=== PATIENT | female | born 1975 | race Caucasian/White ===

== ENCOUNTER 2022-11-01 08:18 | Outpatient (OUT) | payer OTHER, SELFPAY ==
[2022-11-01 08:45] LABS: Basophils Percent Auto 0.6 % (0.2-2.0); Eosinophils Absolute Auto 0.2 10^3/uL (0.0-0.7); Eosinophils Percent Auto 3.3 % (0.9-7.0); Hematocrit 38.9 % (36.0-48.0); Hemoglobin 12.9 g/dL (12.0-16.0); Immature Granulocytes Abs Auto 0.02 10^3/uL (0.00-0.03); Immature Granulocytes Pct Auto 0.3 % (0.0-0.5); Lymphocytes Absolute Auto 2.3 10^3/uL (1.2-3.8); Mean Corpuscular HGB Conc 33.2 g/dL (29.9-35.2); Mean Corpuscular Hemoglobin 29.8 pg (26.7-34.0); Mean Corpuscular Volume 89.8 fL (81.0-99.0); Mean Platelet Volume 8.8 fL (9.5-13.5); Monocytes Absolute Auto 0.5 10^3/uL (0.3-0.8); Monocytes Percent Auto 6.4 % (1.7-12.0); Neutrophils Percent Auto 56.4 % (43.0-75.0); Platelet Count 290 10^3/uL (150-450); Red Blood Count 4.33 10^6/uL (4.20-5.40); Red Cell Distribution Width 12.6 % (11.0-15.0); White Blood Count 7.1 10^3/uL (4.0-11.0)
[2022-11-01 09:07] LABS: Estimated Average Glucose 100 mg/dL; Glycohemoglobin A1C 5.1 % (4.5-6.2)
[2022-11-01 09:55] LABS: Alanine Aminotransferase 44 U/L (14-59); Albumin Level 3.5 g/dL (3.4-5.0); Alkaline Phosphatase 89 U/L (46-116); Anion Gap 11.2; Aspartate Amino Transferase 28 U/L (15-37); BUN Creatinine Ratio 9.7; Bilirubin Total 0.4 mg/dL (0.2-1.0); Calcium 8.5 mg/dL (8.5-10.1); Carbon Dioxide 28.7 mmol/L (21.0-32.0); Chloride 104 mmol/L (98-107); Chol HDL Ratio 3.9; Cholesterol 170 mg/dL (<=200); Estimated GFR (African America >60 (>=60); Estimated GFR (Non-African Ame >60 (>=60); Globulin 3.4 g/dL; Glucose 119 mg/dL (74-106); HDL Cholesterol 44 mg/dL (40-60); LDL Cholesterol Calculated 103.6 mg/dL; Potassium 3.9 mmol/L (3.5-5.1); Sodium 140 mmol/L (136-145); Thyroid Stimulating Hormone 1.523 uIU/mL (0.358-3.740); Total Protein 6.9 g/dL (6.4-8.2); Triglycerides 112 mg/dL (<=150); VLDL CHOLESTEROL 22.4 mg/dL
[2022-11-02 10:13] LABS: Insulin 18.7 uIU/mL (2.6-24.9)
== END 2022-11-01 08:19 ==
LOC: LAB 08:23
PROVIDERS: PCP Family Medicine; Visit Provider Family Medicine
DX: Z00.00 Encounter for general adult medical examination without abnormal findings (principal)
CPT/HCPCS: 36415; 80053; 80061; 83036; 83525; 84436; 84439; 84443; 85025

== ENCOUNTER 2023-05-20 09:23 | Outpatient (OUT) | payer OTHER, SELFPAY ==
--- NOTE | 2023-05-20 09:27 | MM_ITS ---
Patient Name: JAMAICA RUSSO MR#: [id number] : 1975 Exam Date: 05/20/2023 Ordering Doctor: DR Chris Ramirez . RADIOLOGY REPORT PROCEDURE: MM TOMOSYNTHESIS SCREENING BI COMPARISON: MG MAMM SCREEN 3D MARGARET CAD, 05/14/2022. MG MAMM SCREEN 3D MARGARET CAD, 03/26/2021. INDICATIONS: screening Calculator Name NCI Breast Cancer Risk Assessment Tool 5 Year Breast Cancer Risk 1.70% Lifetime Breast Cancer Risk 18.20% Personal Breast Cancer No Personal Ovarian Cancer No Treatments None Family Cancers Sister with breast cancer at age 43; Father with esophageal cancer at age 58; Grandfather-maternal with larynx/throat cancer at age ~60; Cousin-maternal with ovarian cancer at age 19. LOCATION: [facility] BREAST COMPOSITION: Scattered areas fibroglandular density. FINDINGS: DIAGNOSTIC CATEGORY 1--NEGATIVE. NO CHANGE FROM COMPARISON ASSESSMENT. RIGHT BREAST: No significant suspicious finding. LEFT BREAST: No significant suspicious finding. RECOMMENDATIONS: ROUTINE MAMMOGRAM AND CLINICAL EVALUATION IN 12 MONTHS. PLEASE NOTE: A NORMAL MAMMOGRAM DOES NOT EXCLUDE THE POSSIBILITY OF BREAST CANCER. A CLINICALLY SUSPICIOUS PALPABLE LUMP SHOULD BE BIOPSIED. Dictated by: Jonnie Fontaine MD on 05/20/2023 at 13:20 Approved by: Jonnie Fontaine MD on 05/20/2023 at 13:21
== END 2023-05-20 09:24 | disposition home or self-care (01) ==
LOC: MAMMO 09:23
PROVIDERS: PCP Family Medicine; Visit Provider Family Medicine
DX: Z12.31 Encounter for screening mammogram for malignant neoplasm of breast (principal); Z80.3 Family history of malignant neoplasm of breast; Z80.8 Family history of malignant neoplasm of other organs or systems; Z80.41 Family history of malignant neoplasm of ovary
CPT/HCPCS: 77063; 77067

== ENCOUNTER 2023-11-03 08:16 | Outpatient (OUT) | payer OTHER, SELFPAY ==
--- OUTSIDE RECORDS SUMMARY | 2023-11-03 08:19 | XMS_ITS ---
Patient Summarization (C-CDA 2.1 CCD) Created on: November 03, 2023 JAMAICA RUSSO : 1975 Sex: Female Author Organization Sample organization Care Team Providers Care Supervisor Rides Name Role Phone MEGGAN, DR MURPHY Admitting Unavailable NILL, DR MURPHY Attending Unavailable HOY, DR WEINBERG Primary Care Unavailable NILL, DR MURPHY Consulting Unavailable NILL, DR MURPHY Admitting Unavailable NILL, DR MURPHY Attending Unavailable HOY, DR WEINBERG Primary Care Unavailable NILL, DR MURPHY Consulting Unavailable SMITH, COLLEEN Consulting Unavailable PATRICIA, GUME Admitting Unavailable PATRICIA, GUME Attending Unavailable HOY, DR WEINBERG Primary Care Unavailable ZIEBER, DR ARMOND Ford Consulting Unavailable PATRICIA, GUME Consulting Unavailable HOY, DR WEINBERG Admitting Unavailable HOY, DR WEINBERG Attending Unavailable HOY, DR WEINBERG Primary Care Unavailable HOY, DR WEINBERG Consulting Unavailable ZIEBER, DR ARMOND Ford Consulting Unavailable MISC, DR UNDERWOOD Admitting Unavailable MISC, DR UNDERWOOD Attending Unavailable HOY, DR WEINBERG Primary Care Unavailable WEST, DR NUNU Baldwin Consulting Unavailable MISC, DR UNDERWOOD Consulting Unavailable HOY, DR WEINBERG Admitting Unavailable HOY, DR WEINBERG Attending Unavailable HOY, DR WEINBERG Primary Care Unavailable HOY, DR WEINBERG Consulting Unavailable HOY, DR WEINBERG Primary Care Unavailable PATRICIA, GUME Admitting Unavailable PATRICIA, GUME Attending Unavailable PATRICIA, GUME Consulting Unavailable Mee Carroll Unavailable Encounters Encounter Date Encounter Type Care Provider Facility Start: 09-17-2022 End: 09-17-2022 ambulatory Mee Carroll Other [facility] Other Start: 09-17-2022 Office outpatient vi sit 25 minutes eMe Carroll [facility] Start: 05-14-2022 End: 05-15-[address] DOCTOR SUTTON Facility: Start: 06-10-2021 Encounter for preprocedural laboratory examination DR KATHERINE AGUILERA [facility] Start: 06-10-2021 End: 06-10-[address] KATHERINE AGUILERA Facility:[facility] Start: 06-06-2021 End: 06-07-[address] KATHERINE AGUILERA Facility:[facility] Start: 06-06-2021 End: 06-07-2021 Encounter for preprocedural laboratory examination DR KATHERINE AGUILERA Facility:[facility] Start: 05-28-2021 End: 05-28-[address] SULTANA RAMIREZ Facility:[facility] Start: 05-26-2021 End: 05-27-2021 ambulatory GUME GOMEZ Facility:[facility] Start: 05-22-2021 End: 05-22-[address] SULTANA RAMIREZ Facility:[facility] Start: 05-21-2021 End: 05-22-[address] SULTANA RAMIREZ Facility:[facility] Medications Current Medications Medication Drug Class(es) Dates Sig (Normalized) Sig (Original) amoxicillin 500 mg oral capsule (1 source) Penicillin-class Antibacterial Start: 09-17-2022 take 1 capsule by mouth every twelve hours Amoxicillin 500 MG 1 capsule Orally Twice a day for 10 days September, Active cetirizine hydrochloride 10 mg oral tablet (1 source) Histamine-1 Receptor Antagonist take 1 tablet by mouth once daily ZyrTEC 10 MG 1 tablet Orally Once a day Active escitalopram 5 mg oral tablet (1 source) Serotonin Reuptake Inhibitor take 1 tablet by mouth every twenty-four hours Lexapro 5 MG 1 tablet Orally Once a day Active fluticasone propionate 0.05 mg/actuat metered dose nasal spray (1 source) Corticosteroid Start: 08-21-2020 take 1 spray(s) nasal route once daily Fluticasone Propionate 50 MCG/ACT 1 spray in each nostril Nasally Once a day for 30 day(s) Aug, Active norethindrone 0.35 mg oral tablet (1 source) Jencycla 0.35 MG Oral for 84 Days Active pantoprazole 40 mg delayed release oral tablet (1 source) Proton Pump Inhibitor Start: 11-19-2019 take 1 tablet by mouth every twenty-four hours Pantoprazole Sodium 40 MG 1 tablet Orally Once a day for 90 days Nov, Active predniSONE 20 mg oral tablet (1 source) Start: 09-17-2022 take 1 tablet by mouth every twelve hours prednisone 20 MG 1 tablet Orally BID for 5 days September, Active Completed/Discontinued Medications Medication Drug Class(es) Dates Sig (Normalized) Sig (Original) docusate sodium 50 mg / sennosides, half-way 8.6 mg oral tablet (1 source) Start: 01-27-2021 take 8.6-50 mg by mouth at bedtime Senokot S 8.6-50 MG 2 tabs Orally at bedtime for 30 day(s) Jan, Not-Taking lubiprostone 0.024 mg oral capsule (2 sources) Chloride Channel Activator Start: 12-09-2020 take 1 capsule by mouth twice daily at mealtime Amitiza 24 MCG 1 capsule with food and water Orally Twice a day for 90 day(s) Jan, Not-Taking Trulance 3 MG (1 source) Start: 09-29-2020 take 1 tablet by mouth once daily Trulance 3 MG 1 tablet Orally Once a day for 90 day(s) September, Not-Taking Payers Date Payer Category Payer Unknown [id number] [id number] 1975 Unknown [id number] 2.16.84 [id number] 1975 Unknown [id number] 2.16.84 [id number] 1975 Unknown [id number] 2.16.84 [id number] 1975 Unknown [id number] 2.16.84 [id number] 1975 Unknown [id number] 2.16.84 [id number] 1975 Unknown [id number] 2.16.84 [id number] 1957 Private Health Insurance [id number] 1957 Private Health Insurance [id number] Problems Active Problems Problem Classification Problem Date Documented Da te Episodic/Chronic Abdominal pain (16 sources) Right lower quadrant pain; Translations: [Epigastric pain] Onset: 05-26-2021 Episodic Administrative/social admission (1 source) Counseling procedure with explicit context; Translations: [Other specified counseling] Episodic Esophageal disorders (2 sources) Gastro-esophageal reflux disease without esophagitis; Translations: [Gastroesophageal reflux disease] Onset: 06-17-2021 Chronic Gastritis and duodenitis (1 source) Unspecified chronic gastritis without bleeding; Translations: [UNS CHRONIC GASTRITIS W/O BLEEDING] Onset: 06-17-2021 Chronic Immunizations and screening for infectious disease (1 source) Contact with and (suspected) exposure to other bacterial communicable diseases Episodic Other gastrointestinal disorders (1 source) Irritable bowel syndrome; Translations: [Irritable bowel syndrome without diarrhea] Chronic Other gastrointestinal disorders (1 source) Constipation; Translations: [Constipation, unspecified] Episodic Other nutritional; endocrine; and metabolic disorders (1 source) Body mass index 30+ - obesity; Translations: [Body mass index (BMI) 32.0-32.9, adult] Chronic Otitis media and related conditions (1 source) Other acute nonsuppurative otitis media, right ear Episodic Spondylosis; intervertebral disc disorders; other back problems (1 source) Other intervertebral disc degeneration, lumbosacral region; Translations: [OTH IV DISC DEGEN LUMBOSACRAL RGN] Onset: 05-26-2021 Chronic Unclassified (1 source) CONTACT W/AND (SUSP) EXPOS COVID-19; Translations: [CONTACT W/AND (SUSP) EXPOS COVID-19] Onset: 06-10-2021 Past or Other Problems Problem Classification Problem Date Documented Da te Episodic/Chronic Abdominal hernia (1 source) Umbilical hernia without obstruction or gangrene; Translations: [UMBILICAL HERNIA W/O OBST/GANGRENE] Onset: 05-26-2021 Episodic Biliary tract disease (4 sources) Calculus of gallbladder without cholecystitis without obstruction; Translations: [CALCU GB W/O CHOLECYST W/O OBST] Onset: 05-21-2021 Episodic Calculus of urinary tract (1 source) Calculus of ureter; Translations: [CALCULUS OF URETER] Onset: 05-28-2021 Episodic Noninfectious gastroenteritis (1 source) Noninfective gastroenteritis and colitis, unspecified; Translations: [NONINFECTIVE GE AND COLITIS UNS] Onset: 05-26-2021 Episodic Other gastrointestinal disorders (1 source) Change in bowel habit; Translations: [CHANGE IN BOWEL HABIT] Onset: 06-17-2021 Episodic Other gastrointestinal disorders (1 source) Diarrhea, unspecified; Translations: [DIARRHEA UNSPECIFIED] Onset: 06-01-2021 Episodic Other screening for suspected conditions (not mental disorders or infectious disease) (1 source) Abnormal findings on diagnostic imaging of other abdominal regions, including retroperitoneum; Translations: [ABN FIND DX IMAG OTH AB REGION W/RP] Onset: 06-17-2021 Episodic Screening and history of mental health and substance abuse codes (1 source) Personal history of nicotine dependence; Translations: [PERSONAL HISTORY OF NICOTINE DEPEND] Onset: 06-17-2021 Episodic Results Test Name Value Interpretation Reference Range Facility MG MAMM SCREEN 3D MARGARET CADon 05-14-2022 MG MAMM SCREEN 3D MARGARET CAD Patient: JAMAICA RUSSO Exam Date: 05/14/2022 : 1975 Gender:F Ordering : DIOGENES MARTELL Admission #: [id number] Family : Order #: [id number] CLICK HERE TO VIEW EXAM RADIOLOGY REPORT PROCEDURE: MAMMOGRAM SCREENING 3D BILATERAL CAD COMPARISON: MG MAMM SCREEN MARGARET W CAD, 03/25/2020. MG MAMM SCREEN 3D MARGARET CAD, 03/26/2021. INDICATIONS: Calculator Name NCI Breast Cancer Risk Assessment Tool 5 Year Breast Cancer Risk 1.70% Lifetime Breast Cancer Risk 18.50% Personal Breast Cancer No Personal Ovarian Cancer No Treatments None Family Cancers Sister with breast cancer at age 43; Father with esophageal cancer at age 58; Grandfather-maternal with larynx/throat cancer at age 60; Cousin-maternal with ovarian cancer at age 19. LOCATION: [facility] BREAST COMPOSITION: Scattered areas fibroglandular density. FINDINGS: DIAGNOSTIC CATEGORY 1--NEGATIVE. NO CHANGE FROM COMPARISON ASSESSMENT. Scattered benign-appearing calcifications are present. Scattered benign-appearing lymph nodes are present. RIGHT BREAST: No significant suspicious finding. LEFT BREAST: No significant suspicious finding. RECOMMENDATIONS: ROUTINE MAMMOGRAM AND CLINICAL EVALUATION IN 12 MONTHS. PLEASE NOTE: A NORMAL MAMMOGRAM DOES NOT EXCLUDE THE POSSIBILITY OF BREAST CANCER. A CLINICALLY SUSPICIOUS PALPABLE LUMP SHOULD BE BIOPSIED. Dictated by: Nunu Fontaine MD on 05/14/2022 at 11:21 Approved by: Nunu Fontaine MD on 05/14/2022 at 11:35 Normal [facility] Ambulatory Visit Summaryon 0 06-16-2021 Ambulatory Visit Summary JAMAICA RUSSO :1975 Visit Date:06/16/2021 Ambulatory Visit Instructions Your Care Team Attending Physician - MEGGAN CHOU, Katherine Ford Primary Care Physician - James CHOU, Sultana This Is Your Medications List acetaminophen-hydrocodone (acetaminophen-hydrocodone 325 mg-5 mg oral tablet) cefdinir (cefdinir 300 mg Cap) lubiprostone (lubiprostone 24 mcg Cap) metronidazole (MetroNIDAZOLE 500 mg Tab) ondansetron (ondansetron 4 mg Dis Tab) pantoprazole (Protonix 40 mg Tab-DR) Procedures Performed Colonoscopy (06/10/2021), EGD - Esophagogastroduodenoscopy (06/10/2021), Colonoscopy (06/17/2015), Impacted wisdom tooth. Discharge Vitals Temperature (Temporal Artery) 36.5 ?C Medications What How Much When Instructions Unchanged acetaminophen-hydrocodone (acetaminophen-hydrocodone 325 mg-5 mg oral tablet) Unchanged cefdinir (cefdinir 300 mg Cap) 2 Capsules By Mouth Every 12 hours Unchanged lubiprostone (lubiprostone 24 mcg Cap) 1 Capsules By Mouth 2 times a day Unchanged metronidazole (MetroNIDAZOLE 500 mg Tab) Unchanged ondansetron (ondansetron 4 mg Dis Tab) 1 Tablets By Mouth Every 8 hours Unchanged pantoprazole (Protonix 40 mg Tab-DR) 1 Tablets By Mouth Every day Allergies No Known Allergies No Known Medication Allergies Problems Ongoing - Any problem that you are currently receiving treatment for. Abdominal pain, chronic, right upper quadrant Abdominal pain, right lower quadrant Abdominal pain, right upper quadrant Abnormal abdominal CT scan Allergic rhinitis, seasonal BMI 30.0-30.9,adult Bowel habit changes Chronic GERD Epigastric pain History of ovarian cyst Hx of migraine headaches Insomnia Normal [facility] General Surgery Office/Clini c Noteon 06-16-2021 General Surgery Office/Clinic Note Chief Complaint post operative follow up HPI Staff 6 day post operative follow up post colonoscopy and EGD with antral biopsy. Reports she is taking Protonix more regularly which has alleviated some abdominal pain. History of Present Illness 1 week s/p EGD/colonoscopy due to abnormal ct scan and abdominal pain; mild gastritis on EGD, bx negative for H pylori; colonoscopy to terminal ileum wnl. Review of Systems ROS - Provider Constitutional: no fever, no sweats, no weight loss. Eyes: no glasses, no blurred vision, no visual loss. ENMT: no dentures, no hoarseness, no swallowing difficulties, no hearing loss, no ear infection(s), no nose bleeds. Cardiovascular: normal blood pressure, no chest pain, regular heartbeat, no heart murmur. Respiratory: no shortness of breath, no cough, no asthma, no wheezing. Gastrointestinal: no nausea, no vomiting, no diarrhea, no constipation, no blood in stool, no change in bowel habits, no abdominal pain, no hepatitis. Genitourinary: no kidney stones, no urine infection, no dysuria. Musculoskeletal: no pain, no weakness. Skin: no changing moles, no rash, no skin lumps. Neurologic: no seizures, no epilepsy, no headache. Psychiatric: no emotional or psychiatric problem. Heme/Lymph: no bleeding problems, no anemia, no blood clots, no transfusions. Allergy/Immunologic: no swollen lymph nodes/glands, no IV drug abuse. Other: Additional ROS info: Except as noted in the above Review of Systems and in the History of Present Illness, all other systems have been reviewed and are negative or noncontributory. Physical Exam Vitals & Measurements T: 36.5 ?C(Temporal Artery) Assessment/Plan 1. Chronic superficial gastritis without bleeding (K29.30: Chronic superficial gastritis without bleeding) doing well, pain improved with Protonix; call with problems/questions. 2. Abnormal abdominal CT scan (R93.5: Abnormal findings on diagnostic imaging of other abdominal regions, including retroperitoneum) no evidence of colitis on colonoscopy. Follow-up No qualifying data available Problem List/Past Medical History Ongoing Abdominal pain, chronic, right upper quadrant Abdominal pain, right lower quadrant Abdominal pain, right upper quadrant Abnormal abdominal CT scan Allergic rhinitis, seasonal BMI 30.0-30.9,adult Bowel habit changes Chronic GERD Epigastric pain Gastritis History of ovarian cyst Hx of migraine headaches Insomnia Historical No qualifying data Procedure/Surgical History Colonoscopy (06/10/2021), EGD - Esophagogastroduodenoscopy (06/10/2021), Colonoscopy (06/17/2015), Impacted wisdom tooth. Medications acetaminophen-hydrocodone 325 mg-5 mg oral tablet cefdinir 300 mg Cap, 600 mg= 2 cap(s), Oral, q12hr lubiprostone 24 mcg Cap, 24 mcg= 1 cap(s), Oral, BID MetroNIDAZOLE 500 mg Tab ondansetron 4 mg Dis Tab, 4 mg= 1 tab(s), Oral, q8hr Protonix 40 mg Tab-DR, 40 mg= 1 tab(s), Oral, Daily Allergies No Known Allergies No Known Medication Allergies Social History Alcohol - Denies Alcohol Use, 05/27/2021 Substance Abuse - Denies Substance Abuse, 05/27/2021 Tobacco Never (less than 100 in lifetime) Tobacco Use:. Never Smokeless Tobacco Use:., 05/27/2021 Family History Esophageal cancer: Father. Hyperlipidemia: Mother. Hypertension: Mother. Primary malignant neoplasm of female breast: Sister. Normal [facility] Comment on above: Result Comment: Elec tronically Signed By: MEGGAN CHOU, Katherine Clark\Date and Time Signed: 06/16/21 15:17 EST Outside Colonoscopyon 2021 Outside Colonoscopy [id number]:127 Normal [facility] Reminderson 06-16-2021 Reminders - From: Melina Park LPN To: N - Clinical; Sent: 06/16/2021 14:54:18 EST Show up: 05/10/2031 07:00:00 EST Subject: colonoscopy recall Due Date/Time: 06/10/2031 07:00:00 EST Reminder/Recall Patient is due for screening colonoscopy 06/10/2031. Normal [facility] Pathology Noteon 06-12-2021 Pathology Note [id number]:127 Normal [facility] PREG HCG QUALon 06-10-2021 , QUAL Negative Normal NEGATIVE [facility] Comment on above: Performed By: #### P REG #### [facility] [address] [place] [address] Dr. Gold Hanson Lab Reportson 06-08-2021 Lab Reports [id number]:127 Normal [facility] Covid-19 PCR (CVDTB)on 05-17 SARS-CoV-2 (COVID-19) RNA RAYNA+probe Ql (Unsp spec) Not detected Normal NOT DETECTED [facility] Comment on above: Result Comment: This test is not yet approved or cleared by the [place] FDA. When there are no FDA-approved or cleared tests available, and other criteria are met, FDA can make tests available under an emergency access mechanism called an Emergency Use Authorization (EUA). The EUA for this test is supported by the Electric Range Preparer of Health and Human Service's (HHS's) declaration that circumstances exist to justify the emergency use of in vitro diagnostics for the detection and/or diagnosis of the virus that causes COVID-19. This EUA will remain in effect (meaning this test can be used) for the duration of the COVID-19 declaration justifying emergency of IVDs, unless it is terminated or revoked by FDA (after which the test may no longer be used). When diagnostic testing is negative, the possibility of a false negative should be considered in the context of a patient's recent exposures and the presence of clinical signs and symptoms consistent with SARS-CoV-2. Performed By: #### C [facility] #### [facility] [address] [place] [address] Dr. Gold Hanson Consent for Procedure/Surger yon 05-28-2021 Consent for Procedure/Surgery [id number]:127 Normal [facility] Consultation Noteon 05-28-19 Consultation Note [id number]:127 Normal [facility] ED Note-Physicianon 05-28-19 ED Note-Physician [id number]:127 Normal [facility] GI PANEL (PCR)on 05-28-2021 Adenovirus F 40/41 Not detected Normal NOT DETECTED [facility] Comment on above: Performed By: #### G IPANEL #### [facility] [address] [place] [address] Dr. Gold Hanson Astrovirus Not detected Normal NOT DETECTED [facility] Comment on above: Performed By: #### G IPANEL #### [facility] [address] [place] [address] Dr. Gold Hanson C. Diff toxin A/B Not detected Normal NOT DETECTED [facility] Comment on above: Performed By: #### G IPANEL #### [facility] [address] [place] [address] Dr. Gold Hanson Campylobacter Not detected Normal NOT DETECTED [facility] Comment on above: Performed By: #### G IPANEL #### [facility] [address] [place] [address] Dr. Gold Hanson Cryptosporidium Not detected Normal NOT DETECTED [facility] Comment on above: Performed By: #### G IPANEL #### [facility] [address] [place] [address] Dr. Gold Hanson Cyclos. Cayetanensis Not detected Normal NOT DETECTED [facility] Comment on above: Performed By: #### G IPANEL #### [facility] [address] [place] [address] Dr. Gold Hanson E. Coli O157 Not Applicable Normal Not Applicable [facility] Comment on above: Performed By: #### G IPANEL #### [facility] [address] [place] [address] Dr. Gold Hanson E. histolytica Not detected Normal NOT DETECTED [facility] Comment on above: Performed By: #### G IPANEL #### [facility] [address] [place] [address] Dr. Gold Hanson EAEC Not detected Normal NOT DETECTED [facility] Comment on above: Performed By: #### G IPANEL #### [facility] [address] [place] [address] Dr. Gold Hanson EIEC Not detected Normal NOT DETECTED [facility] Comment on above: Performed By: #### G IPANEL #### [facility] [address] [place] [address] Dr. Gold Hanson EPEC Not detected Normal NOT DETECTED [facility] Comment on above: Performed By: #### G IPANEL #### [facility] [address] [place] [address] Dr. Gold Hanson ETEC Not detected Normal NOT DETECTED [facility] Comment on above: Performed By: #### G IPANEL #### [facility] [address] [address] [address] Gold Mcmahon Lamb[place] Not detected Normal NOT DETECTED [facility] Comment on above: Performed By: #### G IPANEL #### [facility] [address] [place] [address] Dr. Gold AGUILAR CONTROLS PASSED Normal [facility] Comment on above: Performed By: #### G IPANEL #### [facility] [address] [place] [address] Dr. Gold THOMAS HEADER GI PANEL BACTERIA Normal T [facility] Comment on above: Performed By: #### G IPANEL #### [facility] [address] [place] [address] Dr. Gold MCNAMARA ECOLI GI PANEL DIARRHEAGEN IC E.COLI / SHIGELLA Normal [facility] Comment on above: Performed By: #### G IPANEL #### [facility] [address] [place] [address] Dr. Gold MCNAMARA INFO SEE BELOW Normal [facility] Comment on above: Result Comment: EAEC - Enteroaggregative E. Coli EPEC- Enteropathogenic E. Coli ETEC- Enterotoxigenic E. Coli lt/st STEC- Shigella-like toxin-producing E. Coli stx1/stx2 EIEC- Shigella/Enteroinvasive E. Coli Performed By: #### G IPANEL #### [facility] [address] [place] [address] Dr. Gold MCNAMARA PARASITES GI PANEL PARASITES Normal [facility] Comment on above: Performed By: #### G IPANEL #### [facility] [address] [place] [address] Dr. Gold MCNAMARA VIRUS GI PANEL VIRUSES Normal [facility] Comment on above: Performed By: #### G IPANEL #### [facility] [address] [address] [address] Gold Hanson Norovirus GI/GII Not detected Normal NOT DETECTED [facility] Comment on above: Performed By: #### G IPANEL #### [facility] [address] [place] [address] Dr. Gold Hanson P. Shigelloides Not detected Normal NOT DETECTED [facility] Comment on above: Performed By: #### G IPANEL #### [facility] [address] [address] [address] Gold Hanson Rotavirus A Not detected Normal NOT DETECTED [facility] Comment on above: Performed By: #### G IPANEL #### [facility] [address] [place] [address] Dr. Gold Hanson Salmonella Not detected Normal NOT DETECTED [facility] Comment on above: Performed By: #### G IPANEL #### [facility] [address] [address] [address] Gold Hanson Sapovirus Not detected Normal NOT DETECTED [facility] Comment on above: Performed By: #### G IPANEL #### [facility] [address] [place] [address] Dr. Gold Hanson STEC Not detected Normal NOT DETECTED [facility] Comment on above: Performed By: #### G IPANEL #### [facility] [address] [place] [address] Dr. Gold Hanson Vibrio Not detected Normal NOT DETECTED [facility] Comment on above: Performed By: #### G IPANEL #### [facility] [address] [place] [address] Dr. Gold Hanson Vibrio Cholera Not detected Normal NOT DETECTED [facility] Comment on above: Performed By: #### G IPANEL #### [facility] Laboratory [address] [place] [address] Dr. Gold Hanson Y. Enterocolitica Not detected Normal NOT DETECTED [facility] Comment on above: Performed By: #### G IPANEL #### [facility] Laboratory [address] [place] [address] Dr. Gold Hanson Pre-Certification Formon Pre-Certification Form [id number]#1.00CD:127 Normal [facility] RAD - CT Reporton 05-28-2021 RAD - CT Report [id number]#1.00CD:127 Normal [facility] RAD - MISCon 05-28-2021 RAD - MISC [id number]#1.00CD:127 Normal [facility] RAD - Ultrasound Reporton RAD - Ultrasound Report [id number]#1.00CD:127 Normal [facility] RAD - Ultrasound Report [id number]#1.00CD:127 Normal [facility] Ambulatory Clinical Summaryo n 05-27-2021 Ambulatory Clinical Summary {[id number]}CD:[id number] Normal [facility] NM HEPATOBILIARY SCAN W EFon 05-26-2021 NM HEPATOBILIARY SCAN W EF EXAMINATION: NM HEPATOBILIARY SCAN W EF HISTORY: Right upper quadrant pain COMPARISON: No relevant comparison available. TECHNIQUE: Radionuclide hepatobiliary imaging was performed after intravenous injection of 5.3 mCi Tc-99m KUSUM derivative with sequential acquisitions every 1 minute for one hour. Hepatobiliary imaging with gallbladder ejection fraction analysis was then performed with sequential imaging every 1 minute for 60 minutes following oral ingestion of 8 ounces Ensure Plus. FINDINGS: LIVER: Normal, prompt and uniform radiotracer uptake and clearing. BILIARY DUCTS: Normal radioisotopic biliary excretion. GALLBLADDER: Normal with no evidence of cystic duct obstruction. INTESTINE: Normal with no evidence of common biliary ductal obstruction. EJECTION FRACTION: 38 % within 60 minutes. (Normal EF > 38%). OTHER: Negative. IMPRESSION: 1. Borderline low ejection fraction; nonspecific but may be secondary to biliary dyskinesia. Electronically authenticated by: ARMOND POLANCO Date: 2021-05-26 09:52 Normal [facility] Physician Referralon 022 Physician Referral [id number]#1.00CD:127 Normal [facility] CBC AUTO DIFFon 05-22-2021 BASO # 0.0 103/ul Normal 0.0-0.1 [facility] Comment on above: Performed By: #### C BC #### [facility] [address] [place] [address] Dr. Gold Hanson Basophils/100 WBC (Bld) 0.3 % Normal 0.2-2.0 [facility] Comment on above: Performed By: #### C BC #### [facility] [address] [place] [address] Dr. Gold Hanson EO # 0.1 103/ul Normal 0.0-0.7 [facility] Comment on above: Performed By: #### C BC #### [facility] [address] [place] [address] Dr. Gold Hanson Eosinophils/100 WBC (Bld) 1.3 % Normal 0.9-7.0 [facility] Comment on above: Performed By: #### C BC #### [facility] [address] [place] [address] Dr. Gold Hanson Erythrocyte distribution width (RBC) [Ratio] 12.8 % Normal 11.0-15.0 [facility] Comment on above: Performed By: #### C BC #### [facility] [address] [place] [address] Dr. Gold Hanson Hematocrit (Bld) [Volume fraction] 39.9 % Normal 36.0-48.0 [facility] Comment on above: Performed By: #### C BC #### [facility] [address] [place] [address] Dr. Gold Hanson Hemoglobin (Bld) [Mass/Vol] 12.8 g/dL Normal 12.0-16.0 [facility] Comment on above: Performed By: #### C BC #### [facility] [address] [place] [address] Dr. Gold Hanson IG # 0.02 10e3/ul Normal 0.00-0.03 [facility] Comment on above: Performed By: #### C BC #### [facility] [address] [place] [address] Dr. Gold Hanson IG % 0.3 % Normal 0.0-0.5 [facility] Comment on above: Performed By: #### C BC #### [facility] [address] [place] [address] Dr. Gold Hanson LYMPH # 1.7 103/ul Normal 1.2-3.8 [facility] Comment on above: Performed By: #### C BC #### [facility] [address] [place] [address] Dr. Gold Hanson Lymphocytes/100 WBC (Bld) 23.6 % Normal 20.5-60.0 [facility] Comment on above: Performed By: #### C BC #### [facility] [address] [place] [address] Dr. Gold Hanson MANUAL DIFF REQ NO Normal [facility] Comment on above: Performed By: #### C BC #### [facility] [address] [place] [address] Dr. Gold Hanson MCH (RBC) [Entitic mass] 27.6 pg Normal 26.7-34.0 [facility] Comment on above: Performed By: #### C BC #### [facility] [address] [place] [address] Dr. Gold Hanson MCHC (RBC) [Mass/Vol] 32.1 g/dL Normal 29.9-35.2 [facility] Comment on above: Performed By: #### C BC #### [facility] [address] [place] [address] Dr. Gold Hanson MCV (RBC) [Entitic vol] 86.0 fL Normal 81.0-99.0 [facility] Comment on above: Performed By: #### C BC #### [facility] [address] [place] [address] Dr. Gold Hanson MONO # 0.5 103/ul Normal 0.3-0.8 [facility] Comment on above: Performed By: #### C BC #### [facility] [address] [place] [address] Dr. Gold Hanson Monocytes/100 WBC (Bld) 7.2 % Normal 1.7-12.0 [facility] Comment on above: Performed By: #### C BC #### [facility] [address] [place] [address] Dr. Gold Hanson NEUT # 4.7 103/ul Normal 1.4-6.5 [facility] Comment on above: Performed By: #### C BC #### [facility] [address] [place] [address] Dr. Gold Hanson Neutrophils/100 WBC (Bld) 67.3 % Normal 43.0-75.0 [facility] Comment on above: Performed By: #### C BC #### [facility] [address] [place] [address] Dr. Gold Hanson Platelet mean volume (Bld) [Entitic vol] 8.8 fL Critically low 9.5-13.5 [facility] Comment on above: Performed By: #### C BC #### [facility] [address] [place] [address] Dr. Gold Hanson PLT 287 103/ul Normal 150-450 [facility] Comment on above: Performed By: #### C BC #### [facility] [address] [place] [address] Dr. Gold Hanson RBC 4.64 106/ul Normal 4.20-5.40 [facility] Comment on above: Performed By: #### C BC #### [facility] [address] [place] [address] Dr. Gold Hanson WBC 7.0 103/ul Normal 4.0-11.0 [facility] Comment on above: Performed By: #### C BC #### [facility] [address] [place] [address] Dr. Gold Hanson CULTURE URINEon 05-22-2021 CULTURE URINE Culture Observations : No growth Normal [facility] Comment on above: Performed By: #### U RCX #### [facility] [address] [address] [address] Gold Hanson ER URINE PROFILEon 2 Bilirubin Ql (U) Negative Normal NEGATIVE [facility] Comment on above: Performed By: #### U MICRO, ERUR #### [facility] [address] [place] [address] Dr. Gold Hanson Clarity (U) CLEAR Normal CLEAR [facility] Comment on above: Performed By: #### U MICRO, ERUR #### [facility] [address] [address] [address] Gold Hanson Color (U) YELLOW Normal YELLOW [facility] Comment on above: Performed By: #### U MICRO, ERUR #### [facility] [address] [place] [address] Dr. Gold Hanson ERUAHD A micrscopic examina tion will be performed if indicated. Normal [facility] Comment on above: Performed By: #### U MICRO, ERUR #### [facility] [address] [place] [address] Dr. Gold Hanson Glucose Ql (U) Negative Normal NEGATIVE [facility] Comment on above: Performed By: #### U MICRO, ERUR #### [facility] [address] [place] [address] Dr. Gold Hanson Hemoglobin Ql (U) SMALL Abnormal NEGATIVE [facility] Comment on above: Performed By: #### U MICRO, ERUR #### [facility] [address] [address] [address] Gold Hanson Ketones Ql (U) TRACE Abnormal NEGATIVE [facility] Comment on above: Performed By: #### U MICRO, ERUR #### [facility] [address] [address] [address] Gold Hanson LEUKOCYTES TRACE Abnormal NEGATIVE [facility] Comment on above: Performed By: #### U MICRO, ERUR #### [facility] [address] [place] [address] Dr. Gold Hanson Nitrite Ql (U) Negative Normal NEGATIVE [facility] Comment on above: Performed By: #### U MICRO, ERUR #### [facility] [address] [place] [address] Dr. Gold Hanson pH (U) 5.0 [pH] Normal 5-9 [facility] Comment on above: Performed By: #### U MICRO, ERUR #### [facility] [address] [place] [address] Dr. Gold Hanson SPEC GRAVITY >=1.030 Abnormal 1.005-<=1.02 5 [facility] Comment on above: Performed By: #### U MICRO, ERUR #### [facility] [address] [place] [address] Dr. Gold Hanson UA PROTEIN Negative Normal NEGATIVE/ TRACE [facility] Comment on above: Performed By: #### U MICRO, ERUR #### [facility] [address] [place] [address] Dr. Gold Hanson UR MICRO IND INDICATED Normal [facility] Comment on above: Performed By: #### U MICRO, ERUR #### [facility] [address] [place] [address] Dr. oGld Hanson Urobilinogen Qn (U) 0.2 {Yanely'U}/dL Normal 0.2 - 1.0 [facility] Comment on above: Performed By: #### U MICRO, ERUR #### [facility] [address] [place] [address] Dr. Gold Hanson PROF 14(COMP METB)on 022 Albumin [Mass/Vol] 3.7 g/dL Normal 3.5-5.0 [facility] Comment on above: Performed By: #### C MP #### [facility] [address] [place] [address] Dr. Gold Hanson Albumin/Globulin [Mass ratio] 1.0 {ratio} Normal [facility] Comment on above: Performed By: #### C MP #### [facility] [address] [place] [address] Dr. Gold Hanson ALP [Catalytic activity/Vol] 104 U/L Normal 38-126 [facility] Comment on above: Performed By: #### C MP #### [facility] [address] [address] [address] Gold Hanson ALT [Catalytic activity/Vol] 18 U/L Normal 9-52 [facility] Comment on above: Performed By: #### C MP #### [facility] [address] [address] [address] Gold Hanson Anion gap [Moles/Vol] 15.2 mmol/L Normal [facility] Comment on above: Performed By: #### C MP #### [facility] [address] [address] [address] Gold Hanson AST [Catalytic activity/Vol] 13 U/L Critically low 14-36 [facility] Comment on above: Performed By: #### C MP #### [facility] [address] [place] [address] Dr. Gold Hanson Bilirubin [Mass/Vol] 0.4 mg/dL Normal 0.2-1.3 [facility] Comment on above: Performed By: #### C MP #### [facility] [address] [place] [address] Dr. Gold Hanson Calcium [Mass/Vol] 9.2 mg/dL Normal 8.4-10.2 [facility] Comment on above: Performed By: #### C MP #### [facility] [address] [place] [address] Dr. Gold Hanson Chloride [Moles/Vol] 106 mmol/L Normal 98-107 [facility] Comment on above: Performed By: #### C MP #### [facility] [address] [place] [address] Dr. Gold Hanson CO2 [Moles/Vol] 22.7 mmol/L Normal 22.0-30.0 [facility] Comment on above: Performed By: #### C MP #### [facility] [address] [place] [address] Dr. Gold Hanson Creatinine [Mass/Vol] 0.84 mg/dL Normal 0.52-1.04 [facility] Comment on above: Performed By: #### C MP #### [facility] [address] [place], [place] [id number] Dr. Gold Hanson EGFR-AF COLOMBIAN >60 Normal >=60 [facility] Comment on above: Performed By: #### C MP #### [facility] [address] [place] [address] Dr. Gold Hanson EGFR-NON AF COLOMBIAN >60 Normal >=60 [facility] Comment on above: Performed By: #### C MP #### [facility] [address] [place] [address] Dr. Gold Hanson Globulin (S) [Mass/Vol] 3.7 g/dL Normal [facility] Comment on above: Performed By: #### C MP #### [facility] [address] [place] [address] Dr. Gold Hanson Glucose [Mass/Vol] 125 mg/dL Critically high 74-106 T [facility] Comment on above: Performed By: #### C MP #### [facility] [address] [place] [address] Dr. Gold Hanson Potassium [Moles/Vol] 3.9 mmol/L Normal 3.4-5.0 [facility] Comment on above: Performed By: #### C MP #### [facility] [address] [place] [address] Dr. Gold Hanson Protein [Mass/Vol] 7.4 g/dL Normal 6.1-8.2 [facility] Comment on above: Performed By: #### C MP #### [facility] [address] [place] [address] Dr. Gold Hanson Sodium [Moles/Vol] 140 mmol/L Normal 137-145 [facility] Comment on above: Performed By: #### C MP #### [facility] [address] [place] [address] Dr. Gold Hanson Urea nitrogen [Mass/Vol] 14.0 mg/dL Normal 7.0-17.0 [facility] Comment on above: Performed By: #### C MP #### [facility] [address] [place] [address] Dr. Gold Hanson Urea nitrogen/Creatinin e [Mass ratio] 16.7 mg/mg Normal [facility] Comment on above: Performed By: #### C MP #### [facility] [address] [place] [address] Dr. Gold Hanson URINE MICROSCOPIC ONLYon BACTERIA SMALL Abnormal NONE SEEN [facility] Comment on above: Performed By: #### C BC #### [facility] [address] [place] [address] Dr. Gold Hanson Bacteria identified Cx Nom (U) INDICATED Normal [facility] Comment on above: Performed By: #### C BC #### [facility] [address] [place] [address] Dr. Gold Hanson CAST NONE SEEN Normal NONE SEEN [facility] Comment on above: Performed By: #### C BC #### [facility] [address] [place] [address] Dr. Gold Hanson Crystals LM Nom (Urine sed) NONE SEEN Normal NONE SEEN [facility] Comment on above: Performed By: #### C BC #### [facility] [address] [place] [address] Dr. Gold Hanson Epithelial cells LM Ql (Urine sed) MODERATE Abnormal NONE SEEN /RARE [facility] Comment on above: Performed By: #### C BC #### [facility] [address] [place] [address] Dr. Gold Hanson MUCOUS NONE SEEN Normal NONE SEEN [facility] Comment on above: Performed By: #### C BC #### [facility] [address] [place] [address] Dr. Gold Hanson RBC 2-5 Abnormal 0-2 [facility] Comment on above: Performed By: #### C BC #### [facility] [address] [place] [address] Dr. Gold Hanson WBC 2-5 Abnormal NONE SEEN [facility] Comment on above: Performed By: #### C BC #### [facility] [address] [place] [address] ABD/PELVIS WO CONon 05-21 CT ABD/PELVIS WO CON EXAMINATION: CT ABD/PELVIS WO CON HISTORY: Gallstone , right lower quadrant pain COMPARISON: No relevant comparison available. TECHNIQUE: Axial, Coronal, and Sagittal images were created without IV contrast. Dose reduction techniques were achieved by using automated exposure control and/or adjustment of mA and/or kV according to patient size and/or use of iterative reconstruction technique. FINDINGS: LUNG BASES: No visible pulmonary or pleural disease. LIVER: No enlargement, atrophy, abnormal density, or significant focal lesion. BILIARY: No dilatation or calcification. PANCREAS: No lesion, fluid collection, ductal dilatation, or atrophy. SPLEEN: No enlargement or focal lesion. ADRENALS: No mass or enlargement. KIDNEYS: No mass, obstruction, or calcification. BOWEL/MESENTERY: Slightly edematous, mild wall thickening of the nondistended cecum and ascending colon. Normal appendix. AORTA/VASCULAR: No aneurysm or dissection. RETROPERITONEUM: No mass or adenopathy. LYMPH NODES: No adenopathy. URINARY BLADDER: No visible focal wall thickening, lesion, or calculus. PELVIC ORGANS: No visible mass. Pelvic organs appropriate for patient age. ABDOMINAL WALL: Small fat filled umbilical hernia without strangulation. BONES: L5-S1 moderate-marked degenerative disc disease with prominent posterior disc bulging. OTHER: Negative. IMPRESSION: 1. Mild colitis of the ascending colon versus artifact from lack of distention. 2. L5-S1 marked degenerative disc disease. 3. Small fat filled umbilical hernia without strangulation. Electronically authenticated by: ARMOND POLANCO Date: 2021-05-21 08:34 Normal [facility] Social History Date Type Detail Facility Unknown if ever smoked [facility] Other Sex Assigned At Sex Assigned At Bir th [facility] Other Vital Signs Date Time Vital Sign Value Performing Clinician Facility 09-17-2022 10:05-0400 Body height 162.56 cm Mee Carroll Other [facility] Other 09-17-2022 10:05-0400 Body mass index (BMI) [Ratio] 35.18 kg/m2 Mee Carroll Other [facility] Other 09-17-2022 10:05-0400 Body temperature 98.2 [degF] Mee Carroll Other [facility] Other 09-17-2022 10:05-0400 Body weight 92.99 kg Mee Carroll Other [facility] Other 09-17-2022 10:05-0400 Diastolic blood pressure 68 mm[Hg] Mee Carroll Other [facility] Other 09-17-2022 10:05-0400 Respiratory rate 18 /min Mee Carroll Other [facility] Other 09-17-2022 10:05-0400 SaO2% (BldA) [Mass fraction] 99 % Mee Carroll Other [facility] Other 09-17-2022 10:05-0400 Systolic blood pressure 127 mm[Hg] Mee Carroll Other [facility] Other Evaluation note 09-17-2022 Note Date & Type Note Facility 09-17-2022 Evaluation note Encounter Date Diagnosis Assessment Notes September, Strep throat exposure (ICD-10 - Z20.818) No testing performed today, will treat today based on known exposure. Reviewed allergies and recent antibiotic use. Instructed patient to take antibiotic as prescribed, with food and plenty of water, complete entire course even if feeling better. Advised patient that they are contagious for 24 hours after starting antibiotic. Discussed infection control and good hand hygiene. New tooth brush in 2-3 days after starting antibiotic. Supportive care as directed. Push fluids and rest, Tylenol or Motrin as needed for fever or discomfort, warm salt water gargles, throat lozenges as needed. Patients symptoms should improve in the next 48 hours, eval by PCP or UC if symptoms have not improved with treatment. Discussed in depth warning symptoms that require immediate eval. Patient verbalizes understanding and is agreeable to treatment plan. September, Acute effusion of right ear (ICD-10 - H65.191) Discussed diagnosis with patient. Advised to continue use of OTC Zyrtec. Use Rx of prednisone as directed. Follow above treatment plan recommendations. [facility] Other Clinical Note 06-10-2021 Note Date & Type Note Facility 06-10-2021 Note OPERATIVE NOTE PREOPERATIVE DIAGNOSIS: Right side abdominal pain, gastroesophageal reflux disease, change in bowel habits. POSTOPERATIVE DIAGNOSIS: Mild antral gastritis, normal colonoscopy. PROCEDURE: EGD with antral biopsy x2 with cold biopsy forceps and colonoscopy to ileum. SURGEON: Katherine Aguilera M.D. ANESTHESIA: Monitored anesthesia care. ESTIMATED BLOOD LOSS: Less than 1 mL. INDICATION: Patient is a 46-year-old female with a history of intermittent right side abdominal pain as well as nausea and bowel changes. CT scan done in the emergency room reveals possible mild ascending colitis with history as above. The alternatives of proceeding with EGD and colonoscopy were explained extensively to the patient. Current risks of bleeding, aspiration, esophageal, gastric, duodenal or colonic perforation. All of her questions were answered. Informed consent was obtained. PROCEDURE: Patient brought to the operating room, placed in the left lateral decubitus position. Monitored anesthesia care was provided. Bite block was placed in the patient's mouth. Scope was inserted into the oropharynx under direct visualization and advanced into the esophagus, past the cricopharyngeus, down to the stomach. The stomach was insufflated with air. The pylorus was traversed down to the descending portion of the duodenum. There was no evidence of blood, mass or ulceration. There was no scarring in the pyloric channel. Scope was pulled back into the antrum and retroflexed. There was no significant hiatal hernia that was noted, just some mild antral gastritis without bleeding or ulceration. Biopsy with the pediatric biopsy forceps was obtained x2 with good hemostasis. The GE junction was noted at approximately 39 cm with no distal esophagitis or Hargrove's changes. The remainder of the esophagus was unremarkable. The scope was then withdrawn. The patient was then positioned for colonoscopy. Rectal exam was performed showing no masses or blood. Scope was inserted into the anal canal. Under direct visualization was advanced. With the aid of abdominal compression, it was advanced to the cecum. The cecal markings were clearly identified. The terminal ileum was intubated and noted to be normal. Upon withdrawal of the scope, mucosal surfaces were carefully examined. There was no mass lesions or polyps. No inflammatory changes or ulcerations. No significant diverticulosis. The scope was directed back to the anal canal. There was noted to be some prominent rectal veins; no significant hemorrhoidal disease. Scope was then withdrawn. Patient tolerated procedure well, was sent to recovery room in good condition. FOLLOW UP COLONOSCOPY: For screening at age 52. [facility] Signed and Approved by: DR KATHERINE AGUILERA . 06/15/2021 16:19:00 [facility] Clinical Note 05-27-2021 Note Date & Type Note Facility 05-27-2021 Note Chief Complaint consultation for right flank pain HPI Staff 46 year old female presents on consultation from Dr. Ramirez for right sided abdominal pain since March. 05/04- was prescribed Cefdinir 300mg two daily x 10 days, pain improved while taking this and returned after completion in which another course of Cefdinir was prescribed on 05/20. Prescribed Bentyl 20mg two QID, stopped this as it was not effective. Restarted Protonix 40mg daily this morning, she had previously stopped this as she had foot pain that she contributed to taking this medication. Intermittently takes Amitiza. ED visit 05/22- prescribed Levaquin, Flagyl, Zofran and [place], stopped Levaquin due to GI upset. RUQ US completed 05/05- normal. HIDA scan 05/26- normal EF. CT abdomen/pelvis completed 05/21 with possible colitis and small fat containing umbilical hernia. Last colonoscopy completed 06/17/15- normal. History of Present Illness 46 yo female referred by Dr Ramirez for several month h/o right sided abdominal pain; prescribed antibiotics which patient reports helped symptoms, now on second course of antibiotics; normal GB US, HIDA scan with normal ejection fraction; recent ct scan after ED evaluation revealed possible mild colitis of ascending colon, was having some loose stools at that time; normal labs, negative urine culture; patient had colonoscopy in [address] Velazquez, which was wnl; no previous abdominal operations; no asa; prescribed course of steroids and additional antibiotics by ED physician due to mild colitis seen on abd/pelvic ct scan; patient did not take steroids; only on flagyl now because couldn't tolerate Levaquin; restarted Protonix. reports frequent loose stools, no blood or mucous; poor appetite. also reported has disc disease of back. Review of Systems PHQ Score Initial Depression Screen Score: 0 ROS - Provider Constitutional: no fever, no sweats, no weight loss. Eyes: no glasses, no blurred vision, no visual loss. ENMT: no dentures, no hoarseness, no swallowing difficulties, no hearing loss, no ear infection(s), no nose bleeds. Cardiovascular: normal blood pressure, no chest pain, regular heartbeat, no heart murmur. Respiratory: no shortness of breath, no cough, no asthma, no wheezing. Gastrointestinal: no nausea, no vomiting, no diarrhea, no constipation, no blood in stool, no change in bowel habits, no abdominal pain, no hepatitis. Genitourinary: no kidney stones, no urine infection, no dysuria. Musculoskeletal: no pain, no weakness. Skin: no changing moles, no rash, no skin lumps. Neurologic: no seizures, no epilepsy, no headache. Psychiatric: no emotional or psychiatric problem. Heme/Lymph: no bleeding problems, no anemia, no blood clots, no transfusions. Allergy/Immunologic: no swollen lymph nodes/glands, no IV drug abuse. Other: Additional ROS info: Except as noted in the above Review of Systems and in the History of Present Illness, all other systems have been reviewed and are negative or noncontributory. Physical Exam Vitals & Measurements T: 36.5 ?C(Temporal Artery) HR: 72(Peripheral) RR: 16 BP: 130/90 HT: 162.6 cm HT: 162.56 cm WT: 81.1 kg WT: 81.1 kg BMI: 30.69 HEENT: normal conjunctiva, sclera clear, no scleral icterus, EOM intact, PERRLA, oral mucosa moist without lesions. Neck: trachea midline, no mass, symmetric, no thyromegaly or nodules, no adenopathy Respiratory: lungs CTA, respirations non labored. Cardiovascular: regular rate and rhythm, no murmur, no pedal edema or varicosities. Gastrointestinal: obese, soft, non distended, mild tenderness, RLQ, subjective; no masses, no palpable hernias, diastasis recti no, no hepatosplenomegaly; normal bs Lymphatic: no cervical adenopathy, Musculoskeletal: normal gait, digits and nails without infection, nodes, cyanosis, clubbing. Skin: no rashes, no lesions, no ulcers, no subcutaneous nodules, induration. Psychiatric/Neuro: oriented to time, place, person, judgement normal, affect appropriate for age, insight intact, no focal deficits. Tests: labs reviewed, x-rays reviewed, review of old records completed, Discussed surgical options, risks, and possible complications with patient. Assessment/Plan 1. Epigastric pain (R10.13: Epigastric pain) plan EGD and colonoscopy under anesthesia for further evaluation, informed consent obtained. 2. Abdominal pain, right lower quadrant (R10.31: Right lower quadrant pain) see # [address] scan (R93.5: Abnormal findings on diagnostic imaging of other abdominal regions, including retroperitoneum) see # 1 4. Chronic GERD (K21.9: Gastro-esophageal reflux disease without esophagitis) see # 1 5. Bowel habit changes (R19.4: Change in bowel habit) see # 1 6. BMI 30.0-30.9,adult (Z68.30: Body mass index [BMI] 30.0-30.9, adult) recommend diet and exercise. Other chronic pain (G89.29: Other chronic pain) Follow-up No qualifying data available Problem List/Past Medical History Ongoing Abdominal pain, chronic, ri (more content not included)... [facility] Comment on above: Result Comment: Elec tronically Signed By: MEGGAN CHOU, Katherine Ford\.josie\Date and Time Signed: 05/27/21 14:49 EST History general Narrative - Reported Note Date & Type Note Facility History general Narrative - Reported Type Medical History anxiety [employer] Other Summary Purpose Family History No Family History Records FoundNo Family History Records Found Advance Directives No Advanced Directives Records FoundNo Advanced Directives Records Found Additional Source Comments INFORMATION SOURCE (unrecogn ized section and content) DATE CREATED AUTHOR 08/02/2021 [facility] DATE CREATED AUTHOR AUTHOR'S ORGANIZ ATION 05/15/2022 [facility] REASON FOR VISIT (unrecogniz ed section and content) ear problem and drainage FOR RECORDS PERTAINING TO PATIENTS WHO ARE OR HAVE BEEN ENROLLED IN A CHEMICAL DEPENDENCY/SUBSTANCEABUSE PROGRAM, SOME INFORMATION MAY BE OMITTED. This clinical summary was aggregated from multiple sources. Caution should be exercised in using it in the provision of clinical care. This summary normalizes information from multiple sources, and as a consequence, information in this document may materially change the coding, format and clinical context of patient data. In addition, data may be omitted in some cases. CLINICAL DECISIONS SHOULD BE BASED ON THE PRIMARY CLINICAL RECORDS. [facility] [employer] [facility]. provides no warranty or guarantee of the accuracy or completeness of information in this document.
[2023-11-03 08:34] LABS: Basophils Absolute Auto 0.1 10^3/uL (0.0-0.1); Basophils Percent Auto 0.8 % (0.2-2.0); Eosinophils Absolute Auto 0.3 10^3/uL (0.0-0.7); Eosinophils Percent Auto 3.4 % (0.9-7.0); Hemoglobin 12.5 g/dL (12.0-16.0); Immature Granulocytes Abs Auto 0.01 10^3/uL (0.00-0.03); Immature Granulocytes Pct Auto 0.1 % (0.0-0.5); Lymphocytes Absolute Auto 2.2 10^3/uL (1.2-3.8); Lymphocytes Percent Auto 30.7 % (20.5-60.0); Mean Corpuscular HGB Conc 32.9 g/dL (29.9-35.2); Mean Corpuscular Hemoglobin 29.3 pg (26.7-34.0); Mean Corpuscular Volume 89.2 fL (81.0-99.0); Mean Platelet Volume 8.9 fL (9.5-13.5); Monocytes Absolute Auto 0.4 10^3/uL (0.3-0.8); Monocytes Percent Auto 5.2 % (1.7-12.0); Neutrophils Absolute Auto 4.4 10^3/uL (1.4-6.5); Neutrophils Percent Auto 59.8 % (43.0-75.0); Platelet Count 317 10^3/uL (150-450); Red Blood Count 4.26 10^6/uL (4.20-5.40); Red Cell Distribution Width 12.7 % (11.0-15.0); White Blood Count 7.3 10^3/uL (4.0-11.0)
[2023-11-03 09:13] LABS: Alanine Aminotransferase 21 U/L (14-59); Albumin Level 3.4 g/dL (3.4-5.0); Alkaline Phosphatase 109 U/L (46-116); Aspartate Amino Transferase 14 U/L (15-37); BUN Creatinine Ratio 9.3; Bilirubin Total 0.4 mg/dL (0.2-1.0); Calcium 8.1 mg/dL (8.5-10.1); Carbon Dioxide 27.1 mmol/L (21.0-32.0); Chloride 106 mmol/L (98-107); Chol HDL Ratio 3.4; Cholesterol 167 mg/dL (<=200); Estimated GFR (African America >60 (>=60); Estimated GFR (Non-African Ame >60 (>=60); Globulin 3.4 g/dL; Glucose 109 mg/dL (74-106); HDL Cholesterol 49 mg/dL (40-60); LDL Cholesterol Calculated 102.6 mg/dL; Potassium 4.1 mmol/L (3.5-5.1); Sodium 142 mmol/L (136-145); Thyroid Stimulating Hormone 1.111 uIU/mL (0.358-3.740); Total Protein 6.8 g/dL (6.4-8.2); Triglycerides 77 mg/dL (<=150); VLDL CHOLESTEROL 15.4 mg/dL
[2023-11-03 09:30] LABS: Estimated Average Glucose 111 mg/dL; Glycohemoglobin A1C 5.5 % (4.5-6.2)
[2023-11-04 04:08] LABS: Insulin 11.2 uIU/mL (2.6-24.9)
== END 2023-11-03 08:17 | disposition home or self-care (01) ==
LOC: LAB 08:16
PROVIDERS: PCP Family Medicine; Visit Provider Family Medicine
DX: Z00.00 Encounter for general adult medical examination without abnormal findings (principal); E78.5 Hyperlipidemia, unspecified; R73.09 Other abnormal glucose; D64.9 Anemia, unspecified; E55.9 Vitamin D deficiency, unspecified
CPT/HCPCS: 36415; 80053; 80061; 82306; 83036; 83525; 83540; 84436; 84443; 84481; 85025

== ENCOUNTER 2024-05-25 08:14 | Outpatient (OUT) | payer OTHER, SELFPAY ==
--- OUTSIDE RECORDS SUMMARY | 2024-05-25 08:16 | XMS_ITS | CCD ---
Author Organization [facility] CliniSymi Care Team Providers Care Glass Silverer Name Role Phone MEGGAN, DR MURPHY Admitting Unavailable NILL, DR MURPHY Attending Unavailable HOY, DR WEINBERG Primary Care Unavailable NILL, DR MURPHY Consulting Unavailable NILL, DR MURPHY Admitting Unavailable NILL, DR MURPHY Attending Unavailable HOY, DR WEINBERG Primary Care Unavailable NILL, DR MURPHY Consulting Unavailable SMITH, COLLEEN Consulting Unavailable PATRICIA, GUME Admitting Unavailable PATRICIA, GUME Attending Unavailable JAMES, DR WEINBERG Primary Care Unavailable ZIEBKYAW, DR ARMOND Ford Consulting Unavailable GUME GOMEZ Consulting Unavailable JOANNAY, DR WEINBERG Admitting Unavailable HOY, DR WEINBERG Attending Unavailable HOY, DR WEINBERG Primary Care Unavailable HOY, DR WEINBERG Consulting Unavailable ZIEBER, DR ARMOND Ford Consulting Unavailable MISC, DR UNDERWOOD Admitting Unavailable MISC, DR UNDERWOOD Attending Unavailable JOANNAY, DR WEINBERG Primary Care Unavailable MARTHA, DR NUNU Baldwin Consulting Unavailable MISC, DR UNDERWOOD Consulting Unavailable HOY, DR WEINBERG Admitting Unavailable HOY, DR WEINBERG Attending Unavailable HOY, DR WEINBERG Primary Care Unavailable HOY, DR WEINBERG Consulting Unavailable JOANNAY, DR WEINBERG Primary Care Unavailable PATRICIA, GUME Admitting Unavailable PATRICIA, GUME Attending Unavailable PATRICIA, GUME Consulting Unavailable Mee Carroll Unavailable Medications Current Medications Medication Drug Class(es) Dates [...] (Original) docusate sodium 50 mg / sennosides, penitentiary 8.6 mg oral tablet (1 source) Start: [...] a day for 90 day(s) September, Not-Taking Problems Active Problems Problem Classification Problem Date [...] MAMM SCREEN 3D MARGARET CAD Patient: JAMAICA RUSSO. Exam Date: 05/14/2022 : 1975 Gender:F Ordering : IDOGENES MARTELL Admission #: [id number] Family : Order #: [id number] CLICK HERE TO VIEW EXAM RADIOLOGY REPORT [...] ovarian cancer at age 21. LOCATION: [facility] BREAST COMPOSITION: Scattered areas fibroglandular density. FINDINGS: [...] MD on 05/14/2022 at 11:35 Normal [facility] Ambulatory Visit Summaryon 0 06-16-2021 Ambulatory Visit [...] cyst Hx of migraine headaches Insomnia Normal [facility] General Surgery Office/Clini c Noteon 06-16-2021 [...] malignant neoplasm of female breast: Sister. Normal [facility] Comment on above: Result Comment: Elec tronically Signed By: MEGGAN CHOU, Katherine Clark\Date and Time Signed: 06/16/21 15:17 EST Outside Colonoscopyon 2021 Outside Colonoscopy [id number]#1.00CD:127 [facility] Reminderson 06-16-2021 Reminders - From: Melina Park LPN To: N - Clinical; Sent: 06/16/2021 14:54:18 EST Show up: 05/10/2031 07:00:00 EST Subject: colonoscopy recall Due Date/Time: 06/10/2031 07:00:00 EST Reminder/Recall Patient is due for screening colonoscopy 06/10/2031. Normal [facility] Pathology Noteon 06-12-2021 Pathology Note [id number]#1.00CD:127 [facility] PREG HCG QUALon 06-10-2021 , QUAL Negative Normal NEGATIVE [facility] Comment on above: Performed By: #### P REG #### [facility] [address] [place] [address] Dr. Gold Hanson Lab Reportson 06-08-2021 Lab Reports [id number]#1.00CD:127 [facility] Covid-19 PCR (CVDTB)on 05-17 SARS-CoV-2 (COVID-19) RNA RAYNA+probe Ql (Unsp spec) Not detected Normal NOT DETECTED [facility] Comment on above: Result Comment: This test is not yet approved or cleared by the [place] FDA. When there are no FDA-approved or cleared tests available, and other criteria are met, FDA can make tests available under an emergency access mechanism called an Emergency Use Authorization (EUA). The EUA for this test is supported by the [place] of Health and Human Service's (HHS's) declaration [...] consistent with SARS-CoV-2. Performed By: #### C VDTB #### [facility] [address] [place] [address] Dr. Gold Hanson Consent for Procedure/Surger yon 05-28-2021 Consent for Procedure/Surgery [id number]#[id number]:127 Normal [facility] Consultation Noteon 05-28-19 Consultation Note [id number]#1.00CD:127 Normal [facility] ED Note-Physicianon 05-28-19 ED Note-Physician [id number]#1.00CD:127 Normal [facility] GI PANEL (PCR)on 05-28-2021 Adenovirus F 40/41 Not detected Normal NOT DETECTED [facility] Comment on above: Performed By: #### G IPANEL #### [facility] [address] [place] [address] Dr. Gold Hanson Astrovirus Not detected Normal NOT DETECTED [facility] Comment on above: Performed By: #### G IPANEL #### [facility] [address] [place] [address] Dr. Gold Hanson C. Diff toxin A/B Not detected Normal NOT DETECTED [facility] Comment on above: Performed By: #### G IPANEL #### [facility] [address] [place] [address] Dr. Gold Hanson Campylobacter Not detected Normal NOT DETECTED [facility] Comment on above: Performed By: #### G IPANEL #### [facility] [address] [place] [address] Dr. Gold Hanson Cryptosporidium Not detected Normal NOT DETECTED [facility] Comment on above: Performed By: #### G IPANEL #### [facility] [address] [place] [address] Dr. Gold Hanson Cyclos. Cayetanensis Not detected Normal NOT DETECTED [facility] Comment on above: Performed By: #### G IPANEL #### [facility] [address] [place] [address] Dr. Gold Hanson E. Coli O157 Not Applicable Normal Not Applicable [facility] Comment on above: Performed By: #### G IPANEL #### [facility] [address] [place] [address] Dr. Gold Hanson E. histolytica Not detected Normal NOT DETECTED [facility] Comment on above: Performed By: #### G IPANEL #### [facility] [address] [place] [address] Dr. Gold Hanson EAEC Not detected Normal NOT DETECTED [facility] Comment on above: Performed By: #### G IPANEL #### [facility] [address] [place] [address] Dr. Gold Hanson EIEC Not detected Normal NOT DETECTED [facility] Comment on above: Performed By: #### G IPANEL #### [facility] [address] [place] [address] Dr. Gold Hanson EPEC Not detected Normal NOT DETECTED [facility] Comment on above: Performed By: #### G IPANEL #### [facility] [address] [place] [address] Dr. Gold Hanson ETEC Not detected Normal NOT DETECTED [facility] Comment on above: Performed By: #### G IPANEL #### [facility] [address] [address] [address] Gold Mcmahon Lamblia Not detected Normal NOT DETECTED [facility] Comment on above: Performed By: #### G IPANEL #### [facility] [address] [address] [address] Gold AGUILAR CONTROLS PASSED Normal [facility] Comment on above: Performed By: #### G IPANEL #### [facility] [address] [address] [address] Gold BACA MARTHA HEADER GI PANEL BACTERIA Normal [facility] Comment on above: Performed By: #### G IPANEL #### [facility] [address] [address] [address] Gold MCNAMARA ECOLI GI PANEL DIARRHEAGEN IC E.COLI / SHIGELLA Normal [facility] Comment on above: Performed By: #### G IPANEL #### [facility] [address] [address] [address] Gold MCNAMARA INFO SEE BELOW Normal [facility] Comment on above: Result Comment: EAEC - Enteroaggregative E. Coli EPEC- Enteropathogenic E. Coli ETEC- Enterotoxigenic E. Coli lt/st STEC- Shigella-like toxin-producing E. Coli stx1/stx2 EIEC- Shigella/Enteroinvasive E. Coli Performed By: #### G IPANEL #### [facility] [address] [address] [address] Gold MCNAMARA PARASITES GI PANEL PARASITES Normal [facility] Comment on above: Performed By: #### G IPANEL #### [facility] [address] [address] [address] Gold MCNAMARA VIRUS GI PANEL VIRUSES Normal [facility] Comment on above: Performed By: #### G IPANEL #### [facility] [address] [address] [address] Gold Hanson Norovirus GI/GII Not detected Normal NOT DETECTED [facility] Comment on above: Performed By: #### G IPANEL #### [facility] [address] [place] [address] Dr. Gold Hanson P. Shigelloides Not detected Normal NOT DETECTED [facility] Comment on above: Performed By: #### G IPANEL #### [facility] [address] [place] [address] Dr. Gold Hanson Rotavirus A Not detected Normal NOT DETECTED [facility] Comment on above: Performed By: #### G IPANEL #### [facility] [address] [place] [address] Dr. Gold Hanson Salmonella Not detected Normal NOT DETECTED [facility] Comment on above: Performed By: #### G IPANEL #### [facility] [address] [place] [address] Dr. Gold Hanson Sapovirus Not detected Normal NOT DETECTED [facility] Comment on above: Performed By: #### G IPANEL #### [facility] [address] [place] [address] Dr. Gold Hanson STEC Not detected Normal NOT DETECTED [facility] Comment on above: Performed By: #### G IPANEL #### [facility] [address] [place] [address] Dr. Gold Hanson Vibrio Not detected Normal NOT DETECTED [facility] Comment on above: Performed By: #### G IPANEL #### [facility] [address] [place] [address] Dr. Gold Hanson Vibrio Cholera Not detected Normal NOT DETECTED [facility] Comment on above: Performed By: #### G IPANEL #### [facility] [address] [place] [address] Dr. Gold Hanson Y. Enterocolitica Not detected Normal NOT DETECTED [facility] Comment on above: Performed By: #### G IPANEL #### [facility] [address] [place] [address] Dr. Gold Hanson Pre-Certification Formon Pre-Certification Form [id number]#[id number]:127 Normal [facility] RAD - CT Reporton 05-28-2021 RAD - CT Report [id number]:127 Normal [facility] RAD - MISCon 05-28-2021 RAD - MISC [id number]#1.00CD:127 Normal [facility] RAD - Ultrasound Reporton RAD - Ultrasound Report [id number]:127 Normal [facility] RAD - Ultrasound Report [id number]:127 Normal [facility] Ambulatory Clinical Summaryo n 05-27-2021 Ambulatory Clinical Summary {[id number]}CD:[id number] Normal [facility] NM HEPATOBILIARY SCAN W EFon 05-26-2021 [...] by: ARMOND POLANCO Date: 2021-05-26 09:52 Normal [facility] Physician Referralon 022 Physician Referral [id number]:127 Normal [facility] CBC AUTO DIFFon 05-22-2021 BASO # 0.0 103/ul Normal 0.0-0.1 [facility] Comment on above: Performed By: #### C BC #### [facility] [address] [address] [address] Gold Hanson Basophils/100 WBC (Bld) 0.3 % Normal 0.2-2.0 [facility] Comment on above: Performed By: #### C BC #### [facility] [address] [address] [address] Gold Hanson EO # 0.1 103/ul Normal 0.0-0.7 [facility] Comment on above: Performed By: #### C BC #### [facility] [address] [place] [address] Dr. Gold Hanson Eosinophils/100 WBC (Bld) 1.3 % Normal 0.9-7.0 [facility] Comment on above: Performed By: #### C BC #### [facility] [address] [place] [address] Dr. Gold Hanson Erythrocyte distribution width (RBC) [Ratio] 12.8 % Normal 11.0-15.0 [facility] Comment on above: Performed By: #### C BC #### [facility] [address] [place] [address] Dr. Gold Hanson Hematocrit (Bld) [Volume fraction] 39.9 % Normal 36.0-48.0 [facility] Comment on above: Performed By: #### C BC #### [facility] [address] [place] [address] Dr. Gold Hanson Hemoglobin (Bld) [Mass/Vol] 12.8 g/dL Normal 12.0-16.0 [facility] Comment on above: Performed By: #### C BC #### [facility] [address] [place] [address] Dr. Gold Hanson IG # 0.02 10e3/ul Normal 0.00-0.03 [facility] Comment on above: Performed By: #### C BC #### [facility] [address] [place] [address] Dr. Gold Hanson IG % 0.3 % Normal 0.0-0.5 [facility] Comment on above: Performed By: #### C BC #### [facility] [address] [place] [address] Dr. Gold Hanson LYMPH # 1.7 103/ul Normal 1.2-3.8 [facility] Comment on above: Performed By: #### C BC #### [facility] [address] [place] [address] Dr. Gold Hanson Lymphocytes/100 WBC (Bld) 23.6 % Normal 20.5-60.0 [facility] Comment on above: Performed By: #### C BC #### [facility] [address] [place] [address] Dr. Gold Hanson MANUAL DIFF REQ NO Normal [facility] Comment on above: Performed By: #### C BC #### [facility] [address] [place] [address] Dr. Gold Hanson MCH (RBC) [Entitic mass] 27.6 pg Normal 26.7-34.0 [facility] Comment on above: Performed By: #### C BC #### [facility] [address] [place] [address] Dr. Gold Hanson MCHC (RBC) [Mass/Vol] 32.1 g/dL Normal 29.9-35.2 [facility] Comment on above: Performed By: #### C BC #### [facility] [address] [place] [address] Dr. Gold Hanson MCV (RBC) [Entitic vol] 86.0 fL Normal 81.0-99.0 [facility] Comment on above: Performed By: #### C BC #### [facility] [address] [place] [address] Dr. Gold Hanson MONO # 0.5 103/ul Normal 0.3-0.8 [facility] Comment on above: Performed By: #### C BC #### [facility] [address] [place] [address] Dr. Gold Hanson Monocytes/100 WBC (Bld) 7.2 % Normal 1.7-12.0 [facility] Comment on above: Performed By: #### C BC #### [facility] [address] [place] [address] Dr. Gold Hanson NEUT # 4.7 103/ul Normal 1.4-6.5 [facility] Comment on above: Performed By: #### C BC #### [facility] [address] [place] [address] Dr. Gold Hanson Neutrophils/100 WBC (Bld) 67.3 % Normal 43.0-75.0 [facility] Comment on above: Performed By: #### C BC #### [facility] [address] [place] [address] Dr. Gold Hanson Platelet mean volume (Bld) [Entitic vol] 8.8 fL Critically low 9.5-13.5 [facility] Comment on above: Performed By: #### C BC #### [facility] [address] [place] [address] Dr. Gold Hanson PLT 287 103/ul Normal 150-450 [facility] Comment on above: Performed By: #### C BC #### [facility] [address] [place] [address] Dr. Gold Hanson RBC 4.64 106/ul Normal 4.20-5.40 [facility] Comment on above: Performed By: #### C BC #### [facility] [address] [place] [address] Dr. Gold Hanson WBC 7.0 103/ul Normal 4.0-11.0 [facility] Comment on above: Performed By: #### C BC #### [facility] [address] [place] [address] Dr. Gold Hanson CULTURE URINEon 05-22-2021 CULTURE URINE Culture Observations : No growth Normal [facility] Comment on above: Performed By: #### U RCX #### [facility] [address] [place] [address] Dr. Gold Hanson ER URINE PROFILEon Bilirubin Ql (U) Negative Normal NEGATIVE [facility] Comment on above: Performed By: #### U MICRO, ERUR #### [facility] [address] [address] [address] Gold Hanson Clarity (U) CLEAR Normal CLEAR [facility] Comment on above: Performed By: #### U MICRO, ERUR #### [facility] [address] [address] [address] Gold Hanson Color (U) YELLOW Normal YELLOW [facility] Comment on above: Performed By: #### U MICRO, ERUR #### [facility] [address] [place] [address] Dr. Gold Hanson ERUAHD A micrscopic examina tion will be performed if indicated. Normal [facility] Comment on above: Performed By: #### U MICRO, ERUR #### [facility] [address] [address] [address] Gold Hanson Glucose Ql (U) Negative Normal NEGATIVE [facility] Comment on above: Performed By: #### U MICRO, ERUR #### [facility] [address] [place] [address] Dr. Gold Hanson Hemoglobin Ql (U) SMALL Abnormal NEGATIVE [facility] Comment on above: Performed By: #### U MICRO, ERUR #### [facility] [address] [address] [address] Gold Hanson Ketones Ql (U) TRACE Abnormal NEGATIVE [facility] Comment on above: Performed By: #### U MICRO, ERUR #### [facility] [address] [address] [address] Gold Hanson LEUKOCYTES TRACE Abnormal NEGATIVE [facility] Comment on above: Performed By: #### U MICRO, ERUR #### [facility] [address] [address] [address] Gold Hanson Nitrite Ql (U) Negative Normal NEGATIVE [facility] Comment on above: Performed By: #### U MICRO, ERUR #### [facility] [address] [address] [address] Gold Hanson pH (U) 5.0 [pH] Normal 5-9 [facility] Comment on above: Performed By: #### U MICRO, ERUR #### [facility] [address] [place] [address] Dr. Gold Hanson SPEC GRAVITY >=1.030 Abnormal 1.005-<=1.02 5 [facility] Comment on above: Performed By: #### U MICRO, ERUR #### [facility] [address] [place] [address] Dr. Gold Hanson UA PROTEIN Negative Normal NEGATIVE/ TRACE [facility] Comment on above: Performed By: #### U MICRO, ERUR #### [facility] [address] [address] [address] Gold Hanson UR MICRO IND INDICATED Normal [facility] Comment on above: Performed By: #### U MICRO, ERUR #### [facility] [address] [place] [address] Dr. Gold Hanson Urobilinogen Qn (U) 0.2 {Yanely'U}/dL Normal 0.2 - 1.0 [facility] Comment on above: Performed By: #### U MICRO, ERUR #### [facility] [address] [place] [address] Dr. Gold Hanson PROF 14(COMP METB)on 022 Albumin [Mass/Vol] 3.7 g/dL Normal 3.5-5.0 [facility] Comment on above: Performed By: #### C MP #### [facility] [address] [place] [address] Dr. Gold Hanson Albumin/Globulin [Mass ratio] 1.0 {ratio} Normal [facility] Comment on above: Performed By: #### C MP #### [facility] [address] [place] [address] Dr. Gold Hanson ALP [Catalytic activity/Vol] 104 U/L Normal 38-126 [facility] Comment on above: Performed By: #### C MP #### [facility] [address] [place] [address] Dr. Gold Hanson ALT [Catalytic activity/Vol] 18 U/L Normal 9-52 [facility] Comment on above: Performed By: #### C MP #### [facility] [address] [address] [address] Gold Hanson Anion gap [Moles/Vol] 15.2 mmol/L Normal [facility] Comment on above: Performed By: #### C MP #### [facility] [address] [address] [address] Gold Hanson AST [Catalytic activity/Vol] 13 U/L Critically low 14-36 [facility] Comment on above: Performed By: #### C MP #### [facility] [address] [address] [address] Gold Hanson Bilirubin [Mass/Vol] 0.4 mg/dL Normal 0.2-1.3 [facility] Comment on above: Performed By: #### C MP #### [facility] [address] [place] [address] Dr. Gold Hanson Calcium [Mass/Vol] 9.2 mg/dL Normal 8.4-10.2 [facility] Comment on above: Performed By: #### C MP #### [facility] [address] [place] [address] Dr. Gold Hanson Chloride [Moles/Vol] 106 mmol/L Normal 98-107 [facility] Comment on above: Performed By: #### C MP #### [facility] [address] [place] [address] Dr. Gold Hanson CO2 [Moles/Vol] 22.7 mmol/L Normal 22.0-30.0 [facility] Comment on above: Performed By: #### C MP #### [facility] [address] [place] [address] Dr. Gold Hanson Creatinine [Mass/Vol] 0.84 mg/dL Normal 0.52-1.04 [facility] Comment on above: Performed By: #### C MP #### [facility] [address] [place] [address] Dr. Gold Hanson EGFR-AF KAZAKH >60 Normal >=60 [facility] Comment on above: Performed By: #### C MP #### [facility] [address] [place] [address] Dr. Gold Hanson EGFR-NON AF KAZAKH >60 Normal >=60 [facility] Comment on above: Performed By: #### C MP #### [facility] [address] [place] [address] Dr. Gold Hanson Globulin (S) [Mass/Vol] 3.7 g/dL Normal [facility] Comment on above: Performed By: #### C MP #### [facility] [address] [address] [address] Gold Hanson Glucose [Mass/Vol] 125 mg/dL Critically high 74-106 [facility] Comment on above: Performed By: #### C MP #### [facility] [address] [place] [address] Dr. Gold Hanson Potassium [Moles/Vol] 3.9 mmol/L Normal 3.4-5.0 [facility] Comment on above: Performed By: #### C MP #### [facility] [address] [place] [address] Dr. Gold Hanson Protein [Mass/Vol] 7.4 g/dL Normal 6.1-8.2 [facility] Comment on above: Performed By: #### C MP #### [facility] [address] [place] [address] Dr. Gold Hanson Sodium [Moles/Vol] 140 mmol/L Normal 137-145 [facility] Comment on above: Performed By: #### C MP #### [facility] [address] [place] [address] Dr. Gold Hanson Urea nitrogen [Mass/Vol] 14.0 mg/dL Normal 7.0-17.0 [facility] Comment on above: Performed By: #### C MP #### [facility] [address] [place] [address] Dr. Gold Hanson Urea nitrogen/Creatinin e [Mass ratio] 16.7 mg/mg Normal [facility] Comment on above: Performed By: #### C MP #### [facility] [address] [place] [address] Dr. Gold Hanson URINE MICROSCOPIC ONLYon BACTERIA SMALL Abnormal NONE SEEN [facility] Comment on above: Performed By: #### C BC #### [facility] [address] [place] [address] Dr. Gold Hanson Bacteria identified Cx Nom (U) INDICATED Normal [facility] Comment on above: Performed By: #### C BC #### [facility] [address] [place] [address] Dr. Gold Hanson CAST NONE SEEN Normal NONE SEEN [facility] Comment on above: Performed By: #### C BC #### [facility] [address] [place] [address] Dr. Gold Hanson Crystals LM Nom (Urine sed) NONE SEEN Normal NONE SEEN [facility] Comment on above: Performed By: #### C BC #### [facility] [address] [place] [address] Dr. Gold Hanson Epithelial cells LM Ql (Urine sed) MODERATE Abnormal NONE SEEN /RARE [facility] Comment on above: Performed By: #### C BC #### [facility] [address] [place] [address] Dr. Gold Hanson MUCOUS NONE SEEN Normal NONE SEEN [facility] Comment on above: Performed By: #### C BC #### [facility] [address] [place] [address] Dr. Gold Hanson RBC 2-5 Abnormal 0-2 [facility] Comment on above: Performed By: #### C BC #### [facility] [address] [place] [address] Dr. Gold Hanson WBC 2-5 Abnormal NONE SEEN [facility] Comment on above: Performed By: #### C BC #### [facility] [address] [place] [address] ABD/PELVIS WO CONon [...] by: ARMOND POLANCO Date: 2021-05-21 08:34 Normal [facility] Vital Signs Date Time Vital Sign Value Performing Clinician Facility 09-17-2022 10:05-0400 Body height 162.56 cm Mee Carroll Other [facility] Other 09-17-2022 10:05-0400 Body mass index (BMI) [Ratio] 35.18 kg/m2 Mee Carroll Other [facility] Other 09-17-2022 10:05-0400 Body temperature 98.2 [degF] Mee Carroll Other [facility] Other 09-17-2022 10:05-0400 Body weight 92.99 kg Mee Carroll Other [facility] Other 09-17-2022 10:05-0400 Diastolic blood pressure 68 mm[Hg] Mee Carroll Other [facility] Other 09-17-2022 10:05-0400 Respiratory rate 18 /min Mee Carroll Other [facility] Other 09-17-2022 10:05-0400 SaO2% (BldA) [Mass fraction] 99 % Mee Carroll Other [facility] Other 09-17-2022 10:05-0400 Systolic blood pressure 127 mm[Hg] Mee Carroll Other [facility] Other Encounters Encounter Date Encounter Type Care Provider Facility Start: 09-17-2022 End: 09-17-2022 ambulatory Mee Carroll Other [facility] Other Start: 09-17-2022 Office outpatient vi sit 25 minutes Mee Carroll [facility] Start: 05-14-2022 End: 05-15-[address] DOCTOR SUTTON Facility:[facility] Start: 06-10-2021 Encounter for preprocedural laboratory examination DR KATHERINE AGUILERA [facility] Start: 06-10-2021 End: 06-10-2021 ambulatory [...] End: 05-22-[address] SULTANA RAMIREZ Facility:[facility] Payers Date Payer Category Payer Unknown [id number] 2.16.84 [id number] 1975 Unknown [id number] 2.16.84 [id number] 1975 Unknown [id number] 2.16.84 [id number] 1977 Unknown [id number] 2.16.84 [id number] 1977 Unknown [id number] 2.16.84 [id number] 1977 Unknown [id number] 2.16.84 [id number] 1977 Unknown [id number] 2.16.84 [id number] 1957 Private Health Insurance [id number] Private Health Insurance [id number] Social History Date Type Detail Facility Unknown if ever smoked [facility] Other Sex Assigned At Sex Assigned At Bir th [facility] Other Evaluation note 09-17-2022 Note Date & [...] as directed. Follow above treatment plan recommendations. [facility] Other Clinical Note 06-10-2021 Note Date & [...] UP COLONOSCOPY: For screening at age 52. [facility] Signed and Approved by: DR KATHERINE AGUILERA . 06/15/2021 16:19:00 [facility] Clinical Note 05-27-2021 Note Date & Type [...] visit 05/22- prescribed Levaquin, Flagyl, Zofran and [place], stopped Levaquin due to GI upset. RUQ [...] pain, chronic, ri (more content not included)... [facility] Comment on above: Result Comment: Elec tronically Signed By: MEGGAN CHOU, Katherine Koo.josie\Date and Time Signed: 05/27/21 14:49 EST History general Narrative - Reported Note Date & Type Note Facility History general Narrative - Reported Type Medical History anxiety [facility] Other Summary Purpose Family History No Family History Records FoundNo Family History Records Found Advance Directives No Advanced Directives Records FoundNo Advanced Directives Records Found Additional Source Comments INFORMATION SOURCE (unrecogn ized section and content) DATE CREATED AUTHOR 08/02/2021 [facility] DATE CREATED AUTHOR AUTHOR'S ORGANIZ ATION [...] BE BASED ON THE PRIMARY CLINICAL RECORDS. [facility]. provides no warranty or guarantee of the accuracy or completeness of information in this document.
--- NOTE | 2024-05-25 08:17 | MM_ITS ---
Patient Name: JAMAICA RUSSO MR#: [id number] : 1975 Exam Date: 05/25/2024 Ordering Doctor: DR SULTANA DE SOUZA . RADIOLOGY REPORT PROCEDURE: MM TOMOSYNTHESIS SCREENING BI COMPARISON: MM TOMOSYNTHESIS SCREENING BI, 05/20/2023. MG MAMM SCREEN 3D MARGARET CAD, 05/14/2022. MG MAMM SCREEN 3D MARGARET CAD, 03/26/2021. MG MAMM SCREEN MARGARET W CAD, 01/25/2017. INDICATIONS: Screening Calculator Name NCI Breast Cancer Risk Assessment Tool 5 Year Breast Cancer Risk 1.80% Lifetime Breast Cancer Risk 18.00% Personal Breast Cancer No Personal Ovarian Cancer No Treatments None Family Cancers Sister with breast cancer at age 43; Father with esophageal cancer at age 58; Grandfather-maternal with larynx/throat cancer at age ~60; Cousin-maternal with ovarian cancer at age 19. LOCATION: [facility] BREAST COMPOSITION: There are scattered areas of fibroglandular density. FINDINGS: DIAGNOSTIC CATEGORY 1--NEGATIVE. RIGHT BREAST: No significant suspicious finding. No significant change has occurred. LEFT BREAST: No significant suspicious finding. No significant change has occurred. RECOMMENDATIONS: ROUTINE MAMMOGRAM AND CLINICAL EVALUATION IN 12 MONTHS. PLEASE NOTE: A NORMAL MAMMOGRAM DOES NOT EXCLUDE THE POSSIBILITY OF BREAST CANCER. A CLINICALLY SUSPICIOUS PALPABLE LUMP SHOULD BE BIOPSIED. Dictated by: Markus Hart M.D. on 05/25/2024 at 15:00 Approved by: Markus Hart M.D. on 05/25/2024 at 15:04
== END 2024-05-25 08:15 | disposition home or self-care (01) ==
LOC: MAMMO 08:14
PROVIDERS: PCP Family Medicine; Visit Provider Family Medicine
DX: Z12.31 Encounter for screening mammogram for malignant neoplasm of breast (principal); Z80.3 Family history of malignant neoplasm of breast; Z80.8 Family history of malignant neoplasm of other organs or systems; Z80.41 Family history of malignant neoplasm of ovary
CPT/HCPCS: 77063; 77067